=== PATIENT | male | born 1935 | race Two or more races ===

== ENCOUNTER 2017-03-27 20:53 | Inpatient (IN) | payer MEDICARE, OTHER ==
[~2017-03-27] VITALS: Ht 152.4 cm; Wt 52.2 kg
--- NOTE | 2017-03-27 20:56 | NUR ---
PT JOLLY FROM SNF TO ER BED 09. HERE FOR MEDICAL EVAL. PER REPORT, POOR ORAL INTAKE. DIFFICULTY SWALLOWING DUR TO PHLEGM. PT IS AAOX3, KOREAN SPEAKING. GOWNED AND PLACED ON MONITOR. STABLE VITALS AWAITING MD GARCIA.
--- NOTE | 2017-03-27 21:30 | NUR ---
IV LINE STARTED BLOOD DRAWN AND SENT TO LAB.
[2017-03-27 21:39] LABS: BASOPHILS # (AUTO) 0.1 /CMM (0.0-0.2); BASOPHILS % (AUTO) 0.5 % (0.0-2.0); EOSINOPHILS # (AUTO) 0.2 /CMM (0.0-0.7); EOSINOPHILS % (AUTO) 1.4 % (0.0-6.0); HEMATOCRIT 30 % (39-51); HEMOGLOBIN 10.3 g/dL (13.5-17.5); LYMPHOCYTES # (AUTO) 1.7 /CMM (0.8-4.8); LYMPHOCYTES % (AUTO) 14.2 % (20.0-44.0); MEAN CORPUSCULAR HEMOGLOBIN 32 PG (26.0-33.0); MEAN CORPUSCULAR HGB CONC 35 g/dl (31.0-36.0); MEAN CORPUSCULAR VOLUME 93 fL (80-96); MONOCYTES # (AUTO) 0.4 /CMM (0.1-1.30); MONOCYTES % (AUTO) 3.6 % (2.0-12.0); NEUTROPHILS # (AUTO) 9.5 /CMM (1.8-8.9); NEUTROPHILS % (AUTO) 80.3 % (43.0-81.0); PLATELET COUNT (AUTO) 269 /CMM (150-450); RDW COEFFICIENT OF VARIATION 12.2 (11.5-15.0); RED BLOOD CELL COUNT(AUTO) 3.23 MIL/uL (4.5-6.0); WHITE BLOOD COUNT (AUTO) 11.9 K/uL (4.3-11.0)
--- NOTE | 2017-03-27 21:47 | NUR ---
RADIOLOGY AT BEDSIDE FOR CHEST XRAY.
[2017-03-27 21:54] LABS: CALCIUM, SERUM 8.7 mg/dL (8.5-10.1); CARBON DIOXIDE 19 mmol/L (21-32); CHLORIDE 106 mmol/L (98-107); CREATININE 2.3 mg/dL (0.6-1.3); GLUCOSE 150 mg/dL (74-106); POTASSIUM 5.2 mmol/L (3.5-5.1); SODIUM SERUM 138 mmol/L (136-145); UREA NITROGEN, BLOOD 57 mg/dL (7-18)
[2017-03-27 21:59] LABS: ALANINE AMINOTRANSFERASE 16 U/L (12-78); ALBUMIN 2.7 g/dL (3.4-5.0); ALKALINE PHOSPHATASE 64 U/L (46-116); ASPARTATE AMINOTRANSFERASE 21 U/L (15-37); BILIRUBIN,DIRECT 0.1 mg/dL (0.0-0.2); BILIRUBIN,TOTAL 0.4 mg/dL (0.2-1.0); LIPASE 205 U/L (73-393); TOTAL PROTEIN, SERUM 7.3 g/dL (6.4-8.2)
--- NOTE | 2017-03-27 22:05 | NUR ---
DR STEEN AT BEDSIDE FOR EVAL.
[2017-03-27 22:48] LABS: APPEARANCE,URINE SL CLOUDY (CLEAR); BILIRUBIN,URINE NEGATIVE (NEGATIVE); BLOOD, URINE TRACE-INTA Ery/uL (NEGATIVE); COLOR,URINE YELLOW (YELLOW); KETONES,URINE NEGATIVE (NEGATIVE); LEUKOCYTE ESTERASE ,URINE NEGATIVE (NEGATIVE); NITRITE, URINE NEGATIVE (NEGATIVE); PH,URINE 5.5 (5.0-8.0); PROTEIN,URINE 2+ mg/dl (NEGATIVE); UGLUCOSE NEGATIVE (NEGATIVE); UROBILINOGEN,URINE 0.2 EU/dL (0.2)
[2017-03-27 22:55] LABS: BACTERIA,URINE Many /HPF (None Seen); RBC,URINE 0-2 /HPF (0-2); SQUAMOUS EPITHELIAL CELL,UR Few /HPF (None Seen)
--- NOTE | 2017-03-27 23:33 | NUR ---
REPORT GIVEN TO TERESA. PT AWAITING TRANSFER TO FLOOR.
[2017-03-27] MEDS ORDERED: ATOR10TA PO (23:46)
[2017-03-27] MEDS ORDERED: ASPI81TA2 PO (23:46)
[2017-03-27] MEDS ORDERED: PANT40TA2 PO (23:46)
[2017-03-27] MEDS ORDERED: BRIM5DRO3 EACHEYE (23:46)
[2017-03-27] MEDS ORDERED: LOSA50TA21 PO (23:46)
[2017-03-27] MEDS ORDERED: AMLO5TAB4 PO (23:46)
[2017-03-27] MEDS ORDERED: CARV25TA PO (23:46)
--- NOTE | 2017-03-27 23:50 | NUR ---
pt transfered to [place] via [facility].
[2017-03-28] VITALS: BP 137/67
--- NOTE | 2017-03-28 | NUR ---
MS TOP FRAME FITTER NOTES ADMITTED THIS 81 Y.O. MALE FROM ER, A RESIDENT FROM [facility],DUE POOR ORAL INTAKE X 8 DAYS,COUGH X 1 WEEK.ALERT,ORIENTED X3,WITH PERIODS OF FORGETFULNESS,SPEAK K[place],UNDERSTAND LITTLE AZERI.PATIENT IS A WHEELCHAIR BOUND,WITH NO HX OF FALL IN THE FACILITY.NOTED OLD,DRY SKIN TEAR X 3 ON RIGHT ARM,OPEN TO AIR.OLD SKIN IRRITATION ON MID SACRAL AREA.CLEANSE WITH SOAP AND WATER,DRIED AND KEPT CLEAN.WITH SALINE LOCK #18 0N LFA RUNNING NS AT 250ML.HR RATE FROM ER.PER RECORDS,PATIENT HAS DIFFICULTY OF SWALLOWING.NOTED PRODUCTIVE COUGH WITH THICK MUCUS.O2 SAT 97% ON ROOM AIR.ORIENTED TO ROOM SET UP AND USE OF CALL LIGHT.WILL CONTINUE TO MONITOR STATUS.
--- NOTE | 2017-03-28 00:38 | NUR ---
MS RN NOTES STARTED ON ROCEPHIN 1GM IN D5W 50ML INFUSED FOR 30 MINUTES,NO ADVERSE REACTION NOTED.
[2017-03-28] MEDS ORDERED: INSU100V11 SQ (00:39)
[2017-03-28] MEDS ORDERED: ATOR10TA PO (00:39)
[2017-03-28] MEDS ORDERED: HYDR-548 PO (00:39)
[2017-03-28] MEDS ORDERED: CLON0.1T PO (00:40)
[2017-03-28] MEDS ORDERED: ACET-868 PO (00:43)
--- NOTE | 2017-03-28 04:59 | NUR ---
MS RN NOTES TRIED TO HAVE JELLO PO BUT HE'S HAVING HARD TIME TO SWALLOW IT.
--- NOTE | 2017-03-28 06:08 | NUR ---
MS RN NOTES NO CHANGE IN STATUS,PRONE TO ASPIRATION.IV ABX TOLERATED WELL.IVF FLUIDS IN PROGRESS.CALL LIGHT IN REACH,NEEDS ATTENDED.WILL ENDORSE TO DAY NURSE FOR ELIA.
[2017-03-28 06:47] LABS: CALCIUM, SERUM 8.4 mg/dL (8.5-10.1); CARBON DIOXIDE 18 mmol/L (21-32); CHLORIDE 112 mmol/L (98-107); GLUCOSE 129 mg/dL (74-106); POTASSIUM 5.4 mmol/L (3.5-5.1); SODIUM SERUM 142 mmol/L (136-145); UREA NITROGEN, BLOOD 49 mg/dL (7-18)
--- NOTE | 2017-03-28 07:10 | NUR ---
RN NOTES PT IS IN BED, SLEEPING COMFORTABLY. PT ON RA, RESPIRATIONS ARE EVEN AND UNLABORED. IV ON LFA INTACT AND PATENT, RUNNING NS @75ML/HR. SAFETY MEASURES ARE IN PLACE, CALL LIGHT IS IN REACH. WILL CONTINUE TO MONITOR.
[2017-03-28 08:00] VITALS: BP 123/68
--- NOTE | 2017-03-28 12:00 | NUR ---
RN NOTES PTS BLOOD SUGAR CHECKED, 94, NO COVERAGE NEEDED.
--- NOTE | 2017-03-28 13:00 | NUR ---
PT HAS PERSISTENT WET COUGH, UNABLE TO COUGH PHLEGM OUT. ORAL SUCTION WAS DONE BY RN AND RT.
--- NOTE | 2017-03-28 14:20 | NUR ---
RN NOTES PT WAS ABLE TO COUGH UP LARGE AMOUNT OF LIGHT BROWN SPUTUM.
[2017-03-28 16:00] VITALS: BP 145/74
--- NOTE | 2017-03-28 19:04 | NUR ---
RN NOTES PT IS SITTING UP IN HIGH FOWLERS POSITION, COUGHING. PT WAS SUCTIONED AGAIN AND WAS ABLE TO SPIT UP MORE LIGHT BROWN SPUTUM. DR. CORREA IS AWARE. IV ON LFA, INTACT AND PATENT, RUNNING NS @ 75 ML/HR. ALL MEDS WERE GIVEN ORDERED. SKIN CARE WAS PROVIDED. SAFETY MEASURES ARE IN PLACE, CALL LIGHT IS IN REACH. WILL ENDORSE TO ELECTRONIC SECURITY TECHNICIAN RN FOR CONTINUITY OF CARE.
[2017-03-28 20:00] VITALS: BP 129/69
--- NOTE | 2017-03-29 06:26 | NUR ---
MS RN NOTES AWAKE & RESPONSIVE. NOT IN ANY DISTRESS. NO SOB NOTED. DENIES ANY PAIN OR DISCOMFORT AT THIS TIME. WITH IVF INFUSING WELL. AM CARE DONE. MONITORED ACCORDINGLY. CALL LIGHT WITHIN REACH. BED IN LOWEST POSITION. SR UP X 2 FOR SAFETY. WILL ENDORSE TO NEXT SHIFT.
--- NOTE | 2017-03-29 07:00 | NUR ---
RN NOTES REPORT RECEIVED AT THE BEDSIDE. PATIENT IS SLEEPING. NO SOB OR DISTRESS NOTED AT THIS TIME. PATIENT DOES NOT APPEAR TO BE IN PAIN, NO FACIAL GRIMACE NOTED. IV FLUIDS INFUSING WELL. BED IN A LOW POSITION, CALL LIGHT WITHIN PATIENT REACH, WILL CONTINUE TO MONITOR.
[2017-03-29 08:00] VITALS: BP 157/72
--- NOTE | 2017-03-29 10:19 | NUR ---
RN NOTES PATIENT IS CAPABLE OF TURNING WITH LITTLE TO NO ASSIST. WILL REMIND PATIENT TO TURN Q2H.
[2017-03-29 16:00] VITALS: BP 124/82
[2017-03-29 17:51] VITALS: BP 150/77
--- NOTE | 2017-03-29 18:49 | NUR ---
RN CLOSING NOTES ONLY CHANGE IN PATIENT CONDITION REPORTED TO DR CORREA THAT PATIENT IS HAVING GREAT DIFFICULTY SWALLOWING ANYTHING THINNER THAN PUDDING. PLACED A SWALLOW EVAL ON THE PATIENT AND MD STATES TO HOLD HIS FOOD UNTIL IT IS DONE. NO SOB OR DISTRESS NOTED AT THIS TIME. PATIENT DENIES PAIN. WILL ENDORSE FOR ELIA.
[2017-03-29 20:00] VITALS: BP 136/74
[2017-03-30 07:07] LABS: CALCIUM, SERUM 8.2 mg/dL (8.5-10.1); CARBON DIOXIDE 15 mmol/L (21-32); CHLORIDE 115 mmol/L (98-107); CREATININE 1.6 mg/dL (0.6-1.3); GLUCOSE 67 mg/dL (74-106); POTASSIUM 4.6 mmol/L (3.5-5.1); SODIUM SERUM 146 mmol/L (136-145); UREA NITROGEN, BLOOD 35 mg/dL (7-18)
[2017-03-30 08:00] VITALS: BP 141/69
--- NOTE | 2017-03-30 08:00 | NUR ---
MS RN OPENING NOTES PATIENT RECEIVED IN STABLE CONDITION. PATIENT IS RESTING IN BED. BEDSIDE RAILS ARE UP X2. BED IS LOCKED AND LOWERED. WILL CONTINUE TO MONITOR.
--- NOTE | 2017-03-30 11:30 | NUR ---
MS RN NOTES RT AT BEDSIDE FOR SUCTIONING.
--- NOTE | 2017-03-30 12:26 | NUR ---
MS RN NOTES NOTIFIED DR CORREA OF CULTURE AND SENSITIVITIES FOR PATIENT URINE CULTURE. ALSO MESSAGE TO MD FOR POSSIBLE BREATHING TREATMENTS
--- NOTE | 2017-03-30 15:24 | NUR ---
MS RN NOTES PER DR CORREA. ALBUTEROL/ IPRATROPIUM ORDERED.
[2017-03-30 16:00] VITALS: BP 132/68
--- NOTE | 2017-03-30 19:21 | NUR ---
MS RN CLOSING NOTES PATIENT IS RESTING IN BED IN NO DISTRESS. PATIENT IS STABLE. WILL ENDORSE CARE TO STOPPERER ASSEMBLER FOR ELIA.
--- NOTE | 2017-03-30 19:35 | NUR ---
MSRN FULLY AWAKE RESTING QUIETLY. DENIES ANY DISCOMFORTS FOR NOW. NO SOB, DOES NOT SOUND CONGESTED OF THIS TIME. CLOSELY WATCHED.
[2017-03-30 20:00] VITALS: BP 135/67
--- NOTE | 2017-03-30 20:31 | NUR ---
MSRN RT AT BEDSIDE, HHN TREATMENT ON PROGRESS.
--- NOTE | 2017-03-30 22:20 | NUR ---
MSRN OCCASSIONAL PRODUCTIVE COUGH. NO SOB, V/S STABLE. DUE MEDS ADMINISTERED WITH APPLE SAUCE. ASPIRATION PRECAUTIONS PRECAUTIONS OBSERVED.
--- NOTE | 2017-03-31 06:28 | NUR ---
MSRN REMAINS UNCHANGED, IVF CONTINUED.
--- NOTE | 2017-03-31 07:30 | NUR ---
RN MS NOTES PT IN BED, AWAKE, ALERT AND ORIENTED, VERBALLY RESPONSIVE, NO COMPLAINT OF PAIN, NOT IN DISTRESS, CALL LIGHT WITHIN REACH.
[2017-03-31 08:00] VITALS: BP 131/73
--- NOTE | 2017-03-31 11:27 | NUR ---
RN MS NOTES PT IN BED, RESTING, DENIES PAIN, NOT IN DISTRESS, NOTED WITH OCCASIONAL PRODUCTIVE COUGH, NO SOB NOTED, BREATHING TREATMENT GIVEN BY RT ORDERED, PT SEEN BY DR. CORREA, ORDERS GIVEN, CALL LIGHT WITHIN REACH, NEEDS ATTENDED.
--- NOTE | 2017-03-31 18:20 | NUR ---
RN MS NOTES PT IN BED, AWAKE, ALERT, WATCHING TV, NO COMPLAINT OF PAIN OR ANY DISCOMFORT, RESPIRATIONS NORMAL AND NOT LABORED, BREATHING TREATMENT GIVEN BY RT ORDERED, CALL LIGHT WITHIN REACH, IV FLUIDS INFUSING WELL, PM MEDS GIVEN, ALL NEEDS ATTENDED.
--- NOTE | 2017-03-31 19:15 | NUR ---
MS RN NOTES RECEIVED ON BED A/O X3,SPEAK CITIZEN OF [place].DENIES PAIN DISCOMFORTS,REGULAR,NOT IN ANY FORM OF DISTRESS.PRESENT IVF IN PROGRESS AT 75ML/HR RATE,SITE PATENT ON LFA,WILL CONTINUE TO MONITOR STATUS.
--- NOTE | 2017-03-31 19:40 | NUR ---
MS RN NOTES RT AT BEDSIDE ADMINISTERING BREATHING TREATMENT SCHEDULED
[2017-03-31 20:00] VITALS: BP 140/79
[2017-03-31 20:07] VITALS: BP 140/79
--- NOTE | 2017-03-31 22:00 | NUR ---
MS RN NOTES APPEARS LIKE CHOKING WITH THICK MUCUS.ORAL SUCTION RENDERED AND HE FEELS BETTER.
--- NOTE | 2017-04-01 02:00 | NUR ---
MS RN NOTES SLEEPING,KEPT WARM AND COMFORTABLE
--- NOTE | 2017-04-01 06:21 | NUR ---
MS RN NOTES SLEPT WITH INTERVALS,BREATHING TREATMENT TOLERATED WELL.NO SOB.FOR D/C PLANNING TO ANTIONE JOHNSON VS PETEDOAngela MCCAIN,IT DEPENDS ON DR CORREA RECOMMENDATIONS.IN NO ACUTE DISTRESS.WILL ENDORSE TODAY NURSE FOR ELIA.
--- NOTE | 2017-04-01 06:33 | NUR ---
MS RN NOTES PAIN MANAGEMENT C/O RIGHT HIP PAIN 8/10 ON PAIN SCALE.MORPHINE 1MG IV ADMINISTERED PER PATIENT REQUEST.
[2017-04-01 06:39] LABS: CALCIUM, SERUM 8.6 mg/dL (8.5-10.1); CARBON DIOXIDE 16 mmol/L (21-32); CHLORIDE 118 mmol/L (98-107); CREATININE 1.5 mg/dL (0.6-1.3); GLUCOSE 73 mg/dL (74-106); POTASSIUM 4.3 mmol/L (3.5-5.1); SODIUM SERUM 147 mmol/L (136-145); UREA NITROGEN, BLOOD 26 mg/dL (7-18)
--- NOTE | 2017-04-01 07:50 | NUR ---
MS/RN Patient received Patient received from night warehouse manager. Sleeping at this time, in no respiratory distress. Call light within reach, bed in low setting, brakes locked, side rails X3 in upright position. Will continue to monitor and ensure safety.
[2017-04-01 08:00] VITALS: BP 140/70
--- NOTE | 2017-04-01 09:30 | NUR ---
MS/RN Medications Morning medications administered as ordered, able to swallow pills whole.
--- NOTE | 2017-04-01 11:33 | NUR ---
MS/RN RT RT at bedside for scheduled breathing treatment, no shortness of breath observed, saturation >94%.
[2017-04-01 16:00] VITALS: BP 144/72
--- NOTE | 2017-04-01 16:15 | NUR ---
MS/RN S/B Deck Engine Operator Seen by meat grinder - recommendations made, will relay to Dr Dominique.
--- NOTE | 2017-04-01 16:45 | NUR ---
MS/RN S/B Dr Dominique Seen by Dr Dominique - made aware of malnutrition alert and extruder operator helper [facility] No new orders received as of this time.
[2017-04-01 16:54] VITALS: BP 144/72
--- NOTE | 2017-04-01 18:49 | NUR ---
MS/RN End note No changes in care at this time, all needs attended. Will continue to monitor and endorse to nightshift.
--- NOTE | 2017-04-01 19:30 | NUR ---
RN INITIAL NOTES: RECEIVED PT A/O X3 BERMUDIAN SPEAKING ON RA RESPIRATION EVEN AND UNLABORED, DENIES ANY PAIN OR DISCOMFORT AT THIS TIME, PT HAS LFA IV ACCESS PATENT AND FLUSHING WELL INFUSING WITH 1/2NS AT 60ML/HR. PT NOTED TO HAVE PRODUCTIVE COUGH, WITH BREATHING TX Q4H SCHEDULED. SAFETY PRECAUTIONS FOR FALL INITIATED CALL LIGHT IN REACH, WILL CONTINUE TO MONITOR
[2017-04-01 20:00] VITALS: BP 118/62
[2017-04-01 21:15] VITALS: BP 146/68
--- NOTE | 2017-04-01 21:27 | NUR ---
RN NOTES: PT INITIALLY AGREE TO TAKE HIS MEDICATIONS INCLUDING LIPITOR, COREG AND AGREE TO RECEIVE HEPARIN, RN OPENED ALL MEDICINE AND PREPARE IT TO BE ADMINISTER TO THE PT, I PUT THE TABLETS IN AN APPLE SAUCE AND HEPARIN IN A SYRINGE, WHEN I WS ABOUT TO GIVE THE MEDICINE, THE PT REFUSED AND STATED "NO, I DON'T WANT IT, GIVE IT TO ME TOMORROW", EDUCATION PROVIDED TO THE PT, BUT HE STILL REFUSED, ALL MEDS WASTED WITH MAIKOL BHATIA
--- NOTE | 2017-04-02 07:10 | NUR ---
RN CLOSING NOTES: PT IN BED, AWAKE, NOT IN ANY DISTRESS, DENIES PAIN OR DISCOMFORT THROUGHOUT THE SHIFT, IV ACCESS REMAINS INFUSING WITH 1/2 NS AT 60ML/HR. NEEDS ATTENDED, VS REMAINS STABLE, SAFETY PRECAUTIONS FOR FALL REMAINS ENGAGED, CALL LIGHT IN REACH, WILL ENDORSE TO DAY RN FOR ELIA.
--- NOTE | 2017-04-02 07:20 | NUR ---
RN OPENING NOTES RECEIVED PATIENT AWAKE RESTING IN BED WITH EYES OPEN. PATIENT IS AOX3. INDIAN/TRISTANIAN SPEAKING. PATIENT DENIES ANY PAIN AT THIS TIME. NO SIGNS OF ACUTE DISTRESS. RESPIRATIONS EVEN AND UNLABORED. PATIENT DENIES SOB. PATIENT DENIES CP. IV ACCESS ON THE LFA 22 G PATENT AND INTACT. 1/2 NS RUNNING @60ML/HR. BED LOCKED IN THE LOWEST POSITION WITH SIDERAILS X2. CALL LIGHT WITHIN REACH. WILL CONTINUE TO MONITOR, ASSESS AND EDUCATE PATIENT THROUGHOUT SHIFT.
[2017-04-02 08:00] VITALS: BP 136/65
[2017-04-02 16:00] VITALS: BP 139/72
--- NOTE | 2017-04-02 19:45 | NUR ---
MS RN NOTE RECEIVED PATIENT FROM DAY SHIFT, PATIENT IS ALERT AND ORIENTEDX3, MAINLY TELUGU SPEAKER, RESTING IN BED AT THIS TIME, IV ON LEFT FA IS PATENT AND INTACT, FLUID IS RUNNING. NO S/S OF RESPIRATORY DISTRESS OR PAIN AT THIS TIME. SRX2, BED IN LOW POSITION, CALL LIGHT WITHIN REACH, WILL CONTINUE TO MONITOR PATIENT.
[2017-04-02 19:56] VITALS: BP 114/54
--- NOTE | 2017-04-02 20:04 | NUR ---
RN CLOSING NOTES PT WAS COMPLIANT WITH ALL MEDICATIONS DURING SHIFT. PT DENIES CP, PAIN AND SOB. AOX3 DIVEHI SPEAKING. PT REMAINED ON BED REST. FREQUENT SUCTIONING IMPLEMENTED. RESPIRATIONS EVEN AND UNLABORED. NO ACUTE DISTRESS. KEPT CLEAN AND DRY. ALL NEEDS MET DURING SHIFT. ALL MEDS GIVEN APPROPRIATE. BED LOCKED IN THE LOWEST POSITION. SIDE RAILS UP X2. WILL ENDORSE TO NIGHT NURSE FOR ELIA.
--- NOTE | 2017-04-02 22:06 | NUR ---
MS RN NOTE PATIENT REFUSED TO TAKE SODIUM BICARB PO, COREG PO, HEPARIN SQ AND LIPITOR PO. PT STATED "NO MORE MEDICINA, NO MORE." MAKE NON-ADMIT ON EMAR. PATIENT'S BP WAS 114/54 PULSE 60. RISKS OF NOT TAKING MEDICATIONS EXPLAINED TO THE PATIENT.
[2017-04-03 06:33] LABS: EOSINOPHILS # (AUTO) 0.2 /CMM (0.0-0.7); HEMATOCRIT 25 % (39-51); HEMOGLOBIN 8.8 g/dL (13.5-17.5); LYMPHOCYTES # (AUTO) 1.6 /CMM (0.8-4.8); LYMPHOCYTES % (AUTO) 18.7 % (20.0-44.0); MEAN CORPUSCULAR HEMOGLOBIN 32 PG (26.0-33.0); MEAN CORPUSCULAR HGB CONC 35 g/dl (31.0-36.0); MEAN CORPUSCULAR VOLUME 93 fL (80-96); MONOCYTES # (AUTO) 0.4 /CMM (0.1-1.30); MONOCYTES % (AUTO) 5.2 % (2.0-12.0); NEUTROPHILS # (AUTO) 6.3 /CMM (1.8-8.9); NEUTROPHILS % (AUTO) 74.1 % (43.0-81.0); PLATELET COUNT (AUTO) 209 /CMM (150-450); RED BLOOD CELL COUNT(AUTO) 2.72 MIL/uL (4.5-6.0); WHITE BLOOD COUNT (AUTO) 8.5 K/uL (4.3-11.0)
[2017-04-03 06:46] LABS: CARBON DIOXIDE 20 mmol/L (21-32); CHLORIDE 109 mmol/L (98-107); CREATININE 1.3 mg/dL (0.6-1.3); GLUCOSE 94 mg/dL (74-106); POTASSIUM 4.1 mmol/L (3.5-5.1); SODIUM SERUM 139 mmol/L (136-145); UREA NITROGEN, BLOOD 16 mg/dL (7-18)
--- NOTE | 2017-04-03 07:00 | NUR ---
RN Initial Notes: Received patient resting in bed. Patient alert oriented x3. No shortness of breath. No signs of distress. Non-labored breathing on room air. IV access on left forearm is patent and intact. Bed in lowest locked position. Call light within reach. Will continue to monitor.
[2017-04-03 08:00] VITALS: BP 139/68
--- NOTE | 2017-04-03 15:48 | NUR ---
RN Notes: Dr. Dominique ordered to discharge patient and continue current medications
[2017-04-03 16:00] VITALS: BP 115/63
--- NOTE | 2017-04-03 19:00 | NUR ---
RN Closing Notes: Patient resting in bed. Patient alert oriented x3. No shortness of breath. No signs of distress. Non-labored breathing on room air. IV access on left forearm is patent and intact. Bed in lowest locked position. Call light within reach. Bed alarm on.Will continue to monitor.
--- NOTE | 2017-04-03 19:01 | NUR ---
RN Closing Notes: Patient resting in bed. Patient alert oriented x3. No shortness of breath. No signs of distress. Non-labored breathing on room air. IV access on left forearm is patent and intact. Bed in lowest locked position. Call light within reach. Bed alarm on. During shift, patient turned and repositioned every 2 hours. Patient kept clean and dry. Patient to be transferred to [facility]. Report given to Nyla. Patient refused wound pictures. Patient refused vaccines. patient educated on vaccines and exist care. Valuables accounted for. Will endorse to next shift.
[2017-04-03 20:00] VITALS: BP 114/68
--- NOTE | 2017-04-03 20:00 | NUR ---
RN Notes: 1924: LINE SERVER alerted me and MAIKOL Coyne that she patient is sitting on the floor. Patient found in a sitting position on the floor between bed and chair. Patient sitting in an upright position. Head in a upright position as well. Call light within reach. Bed noted to be in lowest locked position. No clutter is noted on the floor. Patient assessed immediately. Non-labored breathing noted. BP 114/68, heart rate 79, respirations 18, SPO2 96%, and temp 97.4F. Patient alert oriented x3. When asked about pain, patient responded with "no tiene dolor." Patient PERRLA with pupils 3+. Patient assisted to a sitting position in the chair. Head assessed for bumps. No bumps nor bleeding noted. No lacerations, bruising, or abrasions noted. Patient's back assessed. No redness noted. Airway patent and SPO2 WNL on room air. No new redness on sacral area. No lacerations or bruising on sacral area. Patient helped to a standing position. Patient able to stand up and ambulate with assistance. When asked if he experiences pain, patient responded with "no." When asked in Indonesian if patient hit his head, patient responded with "No." When patient asked why he was trying to get out of bed, patient responded that he wanted to sit in chair. Patient verbalizes understanding of call light. Patient reeducated about call light. Patient offered water and is able to drink without difficulty swallowing. Patient offered ice pack and pain medication. Patient refused. Dr. Taqueria Allen alerted . No new orders and discharge is still pending. Fall report done.
--- NOTE | 2017-04-03 21:00 | NUR ---
MS RN NOTE AMBULANCE IS HERE TO GYM SUPERVISOR THE PATIENT. ID AND IV HEP LOCK WERE REMOVED, DC PACKET GIVEN TO THE MED RESPONSE.
== END 2017-04-03 21:00 | DRG 682 ==
LOC: ER 20:54 → MEDSG2 23:49
PROVIDERS: ADMIT Internal Medicine; ATTEND Internal Medicine
DX: N17.0 Acute kidney failure with tubular necrosis (principal); G93.40 Encephalopathy, unspecified; E87.0 Hyperosmolality and hypernatremia; R13.10 Dysphagia, unspecified; E11.22 Type 2 diabetes mellitus with diabetic chronic kidney disease; E87.2 Acidosis; N39.0 Urinary tract infection, site not specified; E87.5 Hyperkalemia; F03.90 Unspecified dementia, unspecified severity, without behavioral disturbance, psychotic disturbance, mood disturbance, and anxiety; D63.8 Anemia in other chronic diseases classified elsewhere; E03.9 Hypothyroidism, unspecified; R62.7 Adult failure to thrive; Z79.899 Other long term (current) drug therapy; Z83.3 Family history of diabetes mellitus; Z16.11 Resistance to penicillins; Z79.82 Long term (current) use of aspirin; N40.0 Benign prostatic hyperplasia without lower urinary tract symptoms; I25.10 Atherosclerotic heart disease of native coronary artery without angina pectoris; J32.9 Chronic sinusitis, unspecified; Z98.61 Coronary angioplasty status; I12.9 Hypertensive chronic kidney disease with stage 1 through stage 4 chronic kidney disease, or unspecified chronic kidney disease; N18.9 Chronic kidney disease, unspecified; B96.20 Unspecified Escherichia coli [E. coli] as the cause of diseases classified elsewhere; E86.0 Dehydration
CPT/HCPCS: 31720; 36415; 71010-TC; 76770-TC; 80048-TC; 80076-TC; 81000-TC; 82010-TC; 82962-TC; 83605-TC; 83690-TC; 84443-TC; 85025-TC; 87081-TC; 87086-TC; 87186-TC; 92526; 92611-TC; 97110-TC; 97116-TC; 97530-TC; J0696; J1644; J1815; J3490; J7030; J7060

== ENCOUNTER 2017-04-06 17:10 | Inpatient (IN) | payer MEDICARE, OTHER ==
[~2017-04-06] VITALS: Ht 167.6 cm; Wt 47.6 kg
[~2017-04-06 17:10] MED LIST: ACET-868 PO; AMLO5TAB4 PO; ASPI81TA2 PO; ATOR10TA PO; BRIM5DRO3 EACHEYE; CARV25TA PO; CLON0.1T PO; HYDR-548 PO; INSU100V11 SQ; LOSA50TA21 PO; PANT40TA2 PO
--- NOTE | 2017-04-06 17:10 | NUR ---
BBPA FROM [facility]: DIFFICULTY SWALLOWING x 2 DAYS, Hx OF DYSPHAGIA. NAD NOTED. PT AAO X3, MAURITIAN SPEAKER. RR EVEN AND UNLABORED. VSS. PT PLACED ON MONITOR. PENDING MD GARCIA.
[2017-04-06] MEDS ORDERED: METH5TAB70 PO (18:00)
[2017-04-06 18:08] LABS: BASOPHILS % (AUTO) 0.2 % (0.0-2.0); EOSINOPHILS # (AUTO) 0.2 /CMM (0.0-0.7); EOSINOPHILS % (AUTO) 2.3 % (0.0-6.0); HEMATOCRIT 26 % (39-51); LYMPHOCYTES # (AUTO) 1.3 /CMM (0.8-4.8); LYMPHOCYTES % (AUTO) 16.1 % (20.0-44.0); MEAN CORPUSCULAR HEMOGLOBIN 32 PG (26.0-33.0); MEAN CORPUSCULAR HGB CONC 35 g/dl (31.0-36.0); MEAN CORPUSCULAR VOLUME 93 fL (80-96); MONOCYTES # (AUTO) 0.4 /CMM (0.1-1.30); MONOCYTES % (AUTO) 5.4 % (2.0-12.0); NEUTROPHILS # (AUTO) 6.2 /CMM (1.8-8.9); PLATELET COUNT (AUTO) 264 /CMM (150-450); RDW COEFFICIENT OF VARIATION 12.7 (11.5-15.0); RED BLOOD CELL COUNT(AUTO) 2.82 MIL/uL (4.5-6.0); WHITE BLOOD COUNT (AUTO) 8.1 K/uL (4.3-11.0)
[2017-04-06 18:17] LABS: CALCIUM, SERUM 8.1 mg/dL (8.5-10.1); CARBON DIOXIDE 23 mmol/L (21-32); CHLORIDE 110 mmol/L (98-107); CREATININE 1.3 mg/dL (0.6-1.3); GLUCOSE 105 mg/dL (74-106); POTASSIUM 4.1 mmol/L (3.5-5.1); SODIUM SERUM 141 mmol/L (136-145); UREA NITROGEN, BLOOD 14 mg/dL (7-18)
--- NOTE | 2017-04-06 18:44 | NUR ---
CALLED DR WAYNE OFFICE, WILMER MARTINI IS DENTAL INSURANCE BILLER FOR HIM. ON THE PHONE WITH DR CHRISTIANSON
--- NOTE | 2017-04-06 19:55 | NUR ---
report given to m/s jacob garza.
[2017-04-06 20:00] VITALS: BP 160/77
--- NOTE | 2017-04-06 20:20 | NUR ---
MS RN NOTE RECEIVED PATIENT FROM ER VIA MIRA, PATIENT IS ALERT AND ORIENTEDX3, MOHAWK SPEAKER, DENIES SOB OR PAIN AT THIS TIME. IV ON LEFT AC IS PATENT AND INTACT, NO SACRAL WOUND PRESENT, ABRASION ON UPPER EXTREMITIES PRESENT, PICTURES TAKEN. SRX2, BED IN LOW POSITION, CALL LIGHT WITHIN REACH, WILL CONTACT HEARING SPECIALIST WILMER MARTINI TO GET AN ADMISSION ORDER.
--- NOTE | 2017-04-06 20:40 | NUR ---
MS RN NOTE CALLED WILMER GUILLERMO FOR AN ADMISSION ORDER, DID NOT ANSWER THE CALL, LEFT VM.
--- NOTE | 2017-04-06 20:55 | NUR ---
MS RN NOTE ADMISSION ORDERS RECEIVED, PUT THEM IN A SYSTEM, AND FAXED THE HOME MED LIST TO PHARMACY. ACCOUNTS PAYABLE ACCOUNTANT ORDERED VASOTEC 1.25MG IVP Q4H PRN >SBP 160. PATIENT'S BP UPON ADMISSION AT 2019 WAS 160/78, RECHECKED BP AT 2049 WAS 148/74. PER PHARMACY, PATIENT SHOULD BE ON TELE, [facility]ORIE OR ICU TO GET VASOTEC.
[2017-04-06 21:00] VITALS: BP 148/74
--- NOTE | 2017-04-07 06:34 | NUR ---
MS RN NOTE PATIENT IS RESTING IN BED COMFORTABLY, NO ACUTE EVENT NOTED SINCE ADMISSION. IV ON LEFT AC IS PATENT AND INTACT, FLUID IS RUNNING. BS IS 93MG/DL THIS MORNING, NO INSULIN COVERAGE NOTED. WILL ENDORSE TO DAY SHIFT NURSE FOR ELIA.
[2017-04-07 06:35] LABS: BASOPHILS % (AUTO) 0.1 % (0.0-2.0); EOSINOPHILS # (AUTO) 0.1 /CMM (0.0-0.7); EOSINOPHILS % (AUTO) 1.7 % (0.0-6.0); HEMATOCRIT 25 % (39-51); HEMOGLOBIN 8.5 g/dL (13.5-17.5); LYMPHOCYTES # (AUTO) 1.3 /CMM (0.8-4.8); LYMPHOCYTES % (AUTO) 15.9 % (20.0-44.0); MEAN CORPUSCULAR HEMOGLOBIN 32 PG (26.0-33.0); MEAN CORPUSCULAR HGB CONC 34 g/dl (31.0-36.0); MEAN CORPUSCULAR VOLUME 93 fL (80-96); MONOCYTES # (AUTO) 0.5 /CMM (0.1-1.30); MONOCYTES % (AUTO) 5.6 % (2.0-12.0); NEUTROPHILS # (AUTO) 6.3 /CMM (1.8-8.9); NEUTROPHILS % (AUTO) 76.7 % (43.0-81.0); PLATELET COUNT (AUTO) 238 /CMM (150-450); RDW COEFFICIENT OF VARIATION 13.8 (11.5-15.0); WHITE BLOOD COUNT (AUTO) 8.2 K/uL (4.3-11.0)
[2017-04-07 07:24] LABS: CHOLESTEROL 93 mg/dL (<200); HDL CHOLESTEROL 45 mg/dL (40-60); LDL 36 mg/dL (0-99); TRIGLYCERIDES 84 mg/dL (30-150)
--- NOTE | 2017-04-07 07:41 | NUR ---
MS/RN NOTES RECEIVED PATIENT RESTING IN BED SLEEPING COMFORTABLY WITH NO APPARENT DISTRESS, AROUSED BY VERBAL STIMULI. BREATHING EVEN AND UNLABORED, ON ROOM AIR. NPO STATUS WITH PENDING SWALLOW EVAL. IV TO LAC AC INTACT INFUSING D5 1/2NS AT 100CC/HR. SAFETY MEASURES RENDERS, CALL LIGHT PLACED WITHIN EASY REACH. WILL CONTINUE TO MONITOR
[2017-04-07 08:00] VITALS: BP 154/73
[2017-04-07 09:43] LABS: ALANINE AMINOTRANSFERASE 18 U/L (12-78); ALBUMIN 2.2 g/dL (3.4-5.0); ALKALINE PHOSPHATASE 61 U/L (46-116); ASPARTATE AMINOTRANSFERASE 26 U/L (15-37); BILIRUBIN,TOTAL 0.5 mg/dL (0.2-1.0); CALCIUM, SERUM 7.8 mg/dL (8.5-10.1); CARBON DIOXIDE 23 mmol/L (21-32); CHLORIDE 109 mmol/L (98-107); CREATININE 1.1 mg/dL (0.6-1.3); GLUCOSE 115 mg/dL (74-106); POTASSIUM 3.7 mmol/L (3.5-5.1); SODIUM SERUM 140 mmol/L (136-145); TOTAL PROTEIN, SERUM 5.8 g/dL (6.4-8.2); UREA NITROGEN, BLOOD 11 mg/dL (7-18)
--- NOTE | 2017-04-07 12:30 | NUR ---
MS/RN NOTES PATIENT SLEEPING, NO APPARENT DISTRESS OR DISCOMFORT, AROUSABLE. PATIENT REMAINS NPO PENDING SWALLOW EVAL AND SPEECH THERAPY. IV D5 INFUSING WELL. 1200 BLOOD SUGAR 98 MG/D. NO S/S OF HYPOGLYCEMIA NOTED. WILL CONTINUE TO MONITOR.
[2017-04-07 16:00] VITALS: BP 135/75
--- NOTE | 2017-04-07 18:55 | NUR ---
ms/rn notes patient resting in bed comfortably. all due medications given, all needs met and attended. patient kept clean and comfortable. iv fluids infusing gently now discontinued. patient's diet advanced to full liquids, good appetite, no s/s of aspiration noted. able to swallow pills, tolerating well, no s/s of complications noted. seen by dr. busby poc discussed and agreed. safety measures rendered, call light within easy reach. will endorse can to shift supervisor film processing for marilyn
[2017-04-07 20:00] VITALS: BP 106/64
--- NOTE | 2017-04-08 06:00 | NUR ---
PT alert,oriented, denies any pain ,c/o productive cough. no acute distress, tolerating fluids and meds. slept well overnight, no significant changes, had large bm, and voids in urinal.all needs attended, kept clean and dry, heplock.
[2017-04-08 08:00] VITALS: BP 146/48
--- NOTE | 2017-04-08 08:11 | NUR ---
RN OPENING NOTES RECEIVED PT AWAKE RESTING COMFORTABLY IN BED. AOX2-3 ANGUILLAN/MEXICAN SPEAKING. NO COMPLAINTS OF PAIN. NO SOB AND CP. RESPIRATIONS EVEN AND UNLABORED. NO ACUTE DISTRESS. LAC 20G PATENT AND INTACT. BED LOCKED IN THE LOWEST POSITION WITH SIDE RAILS UP X2. CALL LIGHT WITHIN REACH. WILL CONTINUE TO MONITOR, ASSESS AND EDUCATE PATIENT THROUGHOUT SHIFT.
[2017-04-08 16:00] VITALS: BP 111/62
--- NOTE | 2017-04-08 19:31 | NUR ---
RN CLOSING NOTES AOX2-3 BELARUSIAN/GERMAN SPEAKING. NO COMPLAINTS OF PAIN. NO SOB AND CP. RESPIRATIONS EVEN AND UNLABORED. NO ACUTE DISTRESS. BED LOCKED IN THE LOWEST POSITION WITH SIDE RAILS UP X2. CALL LIGHT WITHIN REACH. CONDITION REMAINS UNCHANGED. WILL ENDORSE TO NIGHT RN FOR ELIA.
[2017-04-08 20:26] VITALS: BP 130/59
--- NOTE | 2017-04-09 05:00 | NUR ---
pt in no acute distress overnight , productive cough but needs oral suctioning , incontinent of bowel, had accident in bed, pt didn't call and pt remains in bed, but voids in the urinal. vss,afebrile, kept attended,call light at reached, bed bath given this am.
[2017-04-09 08:00] VITALS: BP 134/70
--- NOTE | 2017-04-09 08:25 | NUR ---
MS RN RECEIVED ON BED, AWAKE,ALERT,ORIENTED X3,NOT IN ANY FORM OF DISTRESS, RESPIRATIONS EVEN AND UNLABORED,NO SOB NOTED. LUNGS ARE CLEAR ABDOMEN SOFT,POSITIVE BOWEL SOUNDS.
--- NOTE | 2017-04-09 09:30 | NUR ---
MS LASSITER BREAKFAST SERVED ,DUE MEDS GIVEN,TOLERATED WELL.
[2017-04-09 16:00] VITALS: BP 131/71
--- NOTE | 2017-04-09 17:18 | NUR ---
MS RN PATIENT ON BED, NO DISTRESS NOTED.
--- NOTE | 2017-04-09 19:20 | NUR ---
MS/RN OPENING NOTES PT RECEIVED RESTING IN BED. A/OX3, YAKUT SPEAKING. ON ROOM AIR, BREATHING EVEN AND UNLABORED. DENIES PAIN AND SOB. IV TO LAC PATENT AND INTACT. BED IN LOW/LOCKED POSITION, CALL LIGHT IN REACH. SIDE RAILS UPX2. WILL CONTINUE TO MONITOR
[2017-04-09 20:00] VITALS: BP 112/60
--- NOTE | 2017-04-10 06:54 | NUR ---
MS/RN CLOSING NOTES PT ASLEEP, EASILY AROUSABLE TO NAME. A/OX3, ON ROOM AIR, BREATHING EVEN AND UNLABORED. DENIES SOB OR PAIN. ASPIRATION PRECAUTIONS MAINTAINED DURING SHIFT. IV TO LAC PATENT AND INTACT. KEPT PT COMFORTABLE DURING SHIFT. ALL NEEDS MET. BED IN LOW/LOCKED POSITION, CALL LIGHT IN REACH .SIDE RAILS UPX2. WILL ENDORSE TO AM SHIFT ELIA.
--- NOTE | 2017-04-10 07:20 | NUR ---
MS/RN OPENING NOTES PT RECEIVED AWAKE IN BED IN NO ACUTE SIGNS OF DISTRESS. HOB ELEVATED. A/OX3, QATARI SPEAKING, DENIES ANY PAIN OR DISCOMFORTS AT THIS TIME. ON ROOM AIR, BREATHING EVEN AND UNLABORED. IV ACCESS ON LAC PATENT AND INTACT. BED IN LOW AND LOCKED POSITION, CALL LIGHT WITHIN REACH WITH SIDE RAILS UPX2. WILL CONTINUE TO MONITOR PT'S STATUS ACCORDINGLY.
[2017-04-10 08:00] VITALS: BP 124/57
[2017-04-10 16:00] VITALS: BP 118/65
--- NOTE | 2017-04-10 18:35 | NUR ---
MS/RN CLOSING NOTES PATIENT AWAKE AND WATCHING TV IN BED AT THIS TIME. HOB KEPT ELEVATED. A/OX3, SAME VERBALLY RESPONSIVE WITH NO COMPLAINTS OF PAIN DURING THE DAY. NO SIGNS OF ASPIRATION NOTED DURING SHIFT. ON ROOM AIR, BREATHING EVEN AND UNLABORED. IV ACCESS ON LAC CLEAN, PATENT AND INTACT, FLUSHED WITH NS WITHOUT PROBLEM. KEPT BED IN LOW AND LOCKED POSITION, CALL LIGHT WITHIN REACH WITH SIDE RAILS UP X2. ALL SAFETY MEASURES IN PLACED. ALL NEEDS AND CARE ATTENDED WELL.
--- NOTE | 2017-04-10 19:42 | NUR ---
MS RN OPENING NOTES: RECEIVED PT AWAKE AND IS RESTING IN BED AT THIS TIME WITH HOB ELEVATED. PT IS A/OX2-3. NO S/S OF DISTRESS NOTED AT THIS TIME. BREATHING EVEN AND UNLABORED. PT ON ROOM AIR TOLERATING WELL. IV SITE ON LAC #20G AND IS PATENT AND INTACT AND CURRENTLY S/L. CALL LIGHT WITHIN PT'S REACH. BED KEPT IN LOW, LOCKED POSITION, AND SIDE RAILS X 2 UP. WILL CONTINUE TO MONITOR PT.
[2017-04-10 20:00] VITALS: BP_SYST 106; BP_SYST 109; BP_DIAS 56
--- NOTE | 2017-04-11 07:12 | NUR ---
MS RN CLOSING NOTES: ALL NEEDS WERE ATTENDED AND ANTICIPATED FOR. PT IS RESTING IN BED COMFORTABLY AT THIS TIME W/ HOB ELEVATED. PT IS A/OX2-3 AND IS PASHTO SPEAKING AND UNDERSTANDING ONLY. NO S/S OF DISTRESS NOTED AT THIS TIME. BREATHING EVEN AND UNLABORED. PT ON ROOM AIR TOLERATING WELL. IV SITE ON LAC #20G AND IS PATENT AND INTACT AND CURRENTLY S/L. CALL LIGHT WITHIN PT'S REACH. BED KEPT IN LOW, LOCKED POSITION, AND SIDE RAILS X 2 UP. WILL ENDORSE TO AM NURSE FOR ELIA.
[2017-04-11 08:00] VITALS: BP 138/68
--- NOTE | 2017-04-11 08:00 | NUR ---
RN NOTES RECEIVED PATIENT IN BED A/O X3 BURUNDIAN SPEAKER, PATIENT HAS NO RESPIRATORY DISTRESS, NEEDS ATTENDED AND ANTICIPATED, HOB ELEVATED, ADD THICKENER FOR ASPIRATION PRECAUTION, PATIENT TOLERATED GAURANG WELL, V/S WNL, CALL LIGHT WITH THE PATIENT , SAFETY PRECAUTION MAINTAINED ALL THE TIME.
[2017-04-11 16:00] VITALS: BP 123/61
--- NOTE | 2017-04-11 17:23 | NUR ---
OSTEOPATHIC MEDICINE TEACHER NOTES PATIENT D/C AT THIS TIME GOING SN[facility]. PATIENT A/O X3 FRISIAN SPEAKER.PATIENT STABLE AT THIS TIME TO D/C . NO RESPIRATORY DISTRESS, V/S STABLE. PATIENT INCONTINENT. PICTURE TAKEN, PATIENT UNABLE TO SIGN PAPERWORK TWO RN COSIGN PAPERWORK. BELONGING WITH THE PATIENT. REPORT GIVEN SNF RN . RN VERBALIZED UNDERSTANDING. FAMILY AWARE OF DISCHARGE. PATIENT SPORTS THERAPIST BY AMBULANCE.
== END 2017-04-11 17:33 | DRG 202 ==
LOC: ER 17:12 → MED 20:00
PROVIDERS: ADMIT Nurse Practitioner Primary Care; ATTEND Internal Medicine
DX: J40 Bronchitis, not specified as acute or chronic (principal); J18.9 Pneumonia, unspecified organism; E46 Unspecified protein-calorie malnutrition; D63.8 Anemia in other chronic diseases classified elsewhere; E11.9 Type 2 diabetes mellitus without complications; R13.10 Dysphagia, unspecified; Z68.1 Body mass index [BMI] 19.9 or less, adult; E05.90 Thyrotoxicosis, unspecified without thyrotoxic crisis or storm; I10 Essential (primary) hypertension; I25.10 Atherosclerotic heart disease of native coronary artery without angina pectoris; R53.81 Other malaise; J32.9 Chronic sinusitis, unspecified; K21.9 Gastro-esophageal reflux disease without esophagitis; R53.1 Weakness; Z98.61 Coronary angioplasty status; E03.9 Hypothyroidism, unspecified
CPT/HCPCS: 36415; 71010-TC; 80048-TC; 80053-TC; 80061-TC; 82962-TC; 85025-TC; 87081-TC; A4606; J1815; J3490; Z7610